=== PATIENT | female | born 1950 | race Two or more races ===

== ENCOUNTER 2018-03-27 08:05 | Outpatient (CLI) | payer OTHER | END 2018-03-27 08:15 | disposition home or self-care (01) | LOC: SONOGRAMA 08:05 → MAMO-SONO 08:15 | DX: R10.9 Unspecified abdominal pain (principal) ==

== ENCOUNTER 2018-03-30 08:58 | Outpatient (CLI) | payer OTHER | END 2018-03-30 15:47 | disposition home or self-care (01) | LOC: TOM 08:58 | DX: R10.9 Unspecified abdominal pain (principal) | CPT/HCPCS: 74177; Q9965 ==